=== PATIENT | female | born 1985 | race Caucasian/White ===

== ENCOUNTER 2019-01-17 05:37 | Inpatient (IN) | payer OTHER ==
[2019-01-17] MEDS ORDERED: MIDAZOLAM 1 MG/ML 2 ML INJ (07:29)
[2019-01-17] MEDS ORDERED: HYDROmorphONE 2 MG/ML SYG (07:34)
[2019-01-17] MEDS ORDERED: LIDOCAINE 2% (SDV) 5 ML INJ (07:49)
[2019-01-17] MEDS ORDERED: DEXAMETHASONE 4 MG/ML 5 ML INJ (07:49)
[2019-01-17] MEDS ORDERED: FAMOTIDINE 20 MG INJ (07:49)
[2019-01-17] MEDS ORDERED: GLYCOPYRROLATE 0.4 MG INJ (07:49)
[2019-01-17] MEDS ORDERED: ROCURONIUM 50 MG INJ (07:49)
[2019-01-17] MEDS ORDERED: CEFAZOLIN 1 GM INJ (07:49)
[2019-01-17] MEDS ORDERED: NEOSTIGMINE 3 MG/3 ML SYRINGE (07:49)
[2019-01-17] MEDS ORDERED: PROPOFOL 20 ML (07:49)
[2019-01-17] MEDS ORDERED: METOCLOPRAMIDE 10 MG INJ (07:49)
[2019-01-17] MEDS ORDERED: ONDANSETRON 4 MG INJ (07:49)
[2019-01-17] MEDS ORDERED: morphine 2 MG INJ IV (08:00)
[2019-01-17] MEDS ORDERED: ONDANSETRON 4 MG INJ IV (08:00)
[2019-01-17] MEDS ORDERED: IBUPROFEN 600 MG TAB PO (08:00)
[2019-01-17] MEDS ORDERED: LABETALOL HCL 20MG INJ IV (09:00)
[2019-01-17] MEDS ORDERED: HYDROmorphONE 1 MG/5 ML IV SYRINGE IV ×3 (09:00→09:14)
[2019-01-17] MEDS ORDERED: OXYCODONE/ACETAMINOPHEN (5/325) TAB PO ×2 (09:00)
[2019-01-17] MEDS: ONDANSETRON 4 MG INJ IV (09:29)
[2019-01-17] MEDS: HYDROmorphONE 1 MG/5 ML IV SYRINGE IV (09:30)
[2019-01-17] MEDS: MEPERIDINE 25 MG INJ IV (10:03)
[2019-01-17] MEDS ORDERED: POLYETHYLENE GLYCOL 17 GM PACKET NGT (16:00)
[2019-01-17] MEDS: MAGNESIUM HYDROXIDE 30ML CUP PO (18:08)
[2019-01-18 05:27] LABS: ADD MAN DIFF? NO
[2019-01-18 05:32] LABS: BASOPHILS % 0.1 % (0.0-2.0); HEMATOCRIT 37.4 % (37.0-47.0); HEMOGLOBIN 12.8 g/dl (12.0-16.0); LYMPHOCYTES # 1.7 10^3/ul (0.8-2.9); LYMPHOCYTES % 11.2 % (15.0-51.0); MEAN CORPUSCULAR HEMOGLOBIN 28.6 pg (29.0-33.0); MEAN CORPUSCULAR HGB CONC 34.2 g/dl (32.0-37.0); MEAN CORPUSCULAR VOLUME 83.5 fl (82.0-101.0); MEAN PLATELET VOLUME 10.1 fl (7.4-10.4); MONOCYTE # 1.2 10^3/ul (0.3-0.9); MONOCYTES % 7.9 % (0.0-11.0); NEUTROPHIL # 11.9 10^3/ul (1.6-7.5); NEUTROPHILS % 80.5 % (39.0-77.0); PLATELET COUNT 252 10^3/UL (140-415); RED BLOOD COUNT 4.48 10^6/ul (4.20-5.40); RED CELL DISTRIBUTION WIDTH 13.1 % (11.5-14.5)
[2019-01-18 05:32] LABS: WHITE BLOOD COUNT 14.7 10^3/ul (4.8-10.8)
[2019-01-18] MEDS: HYDROCODONE/APAP (5/325) TAB PO (06:04)
[2019-01-18] MEDS: MAGNESIUM HYDROXIDE 30ML CUP PO (08:31)
[2019-01-18] MEDS: POLYETHYLENE GLYCOL 17 GM PACKET PO (08:31)
[2019-01-18] MEDS: ENOXAPARIN 40 MG/0.4 ML SYG SC (11:46)
== END 2019-01-18 21:00 | disposition home or self-care (01) | DRG 743 ==
LOC: REC 05:37 → 2NE 10:30
PROVIDERS: Specialist
PROC: 0UB10ZZ Excision of Left Ovary, Open Approach (ICD-10-PCS; principal; 2019-01-17 07:26)
DX: N83.202 Unspecified ovarian cyst, left side (principal)
CPT/HCPCS: 85025; 87086; 88104; 88305